=== PATIENT | female | born 1970 | race Caucasian/White ===

== ENCOUNTER 2016-05-03 08:51 | Observation (INO) ==
[2016-05-03] MEDS ORDERED: Aspirin 81 MG TAB.CHEW PO ONE (09:05)
[2016-05-03] MEDS: Nitroglycerin 0.4 MG TAB.SUBL SL ONE ×3 (09:52→10:12)
--- NOTE | 2016-05-03 09:56 | Emergency Department Note ---
Disposition Clinical Impression: Chest pain Qualifiers: Chest pain type: unspecified Qualified Code(s): R07.9 - Chest pain, unspecified Disposition: Admitted As Inpatient Condition: Fair Time of Disposition: 13:04 Chest Pain HPI - General Chief Complaint: ED Chest Pain Stated Complaint: CP Time Seen by Provider: 05/03/16 08:51 Source: patient Limitations: no limitations Vital Signs Reviewed: Yes Nursing Notes Reviewed: Yes - History of Present Illness HPI Narrative: 45-year-old female history of CAD, HLD,obesity, Fam HX, chest pain sharp stabbing pain of 10 chest pain, this started at 7:30 this morning she came to the ER she did take one nitroglycerin, did not have any relief. Patient is a history of hypertension, obesity, family history of NE at a young age. Pt complaint: chest pain Onset (ago): hour(s) (7:30 am) Onset: during exertion Pain Location: substernal Severity: moderate Severity scale (1-10): 9 Quality: aching, sharp Improves with: nitroglycerin (no improvement after nitro x 1) Worsens with: nothing Associated symptoms: Reports: nausea, dyspnea. Denies: vomiting, diaphoresis, palpitations Treatments prior to arrival chest pain: aspirin, nitroglycerin - Related Data Home Medications Medication Instructions Recorded Confirmed Amoxicillin/Clavulanate [Augmentin] 875 mg PO BIDWM 05/03/16 05/03/16 Brompheniramine/Pseudoephed/Dm 10 ml PO TID PRN 05/03/16 05/03/16 [Bromfed Dm Cough Syrup] FLUoxetine HCl [PROzac] 20 mg PO QAM 05/03/16 05/03/16 Simvastatin [Zocor] 40 mg PO QAM 05/03/16 05/03/16 Tizanidine HCl [Zanaflex] 4 mg PO TID PRN 05/03/16 05/03/16 Allergies Allergy/AdvReac Type Severity Reaction Status Date / Time codeine Allergy Unresponsiv Verified 07/03/15 11:29 e gabapentin AdvReac Vomiting Verified 05/03/16 11:10 sucralfate [From Carafate] AdvReac Vomiting Verified 05/03/16 11:10 All systems ED: reviewed and negative except as stated. Constitutional: Denies: fever, chills Cardiovascular: Reports: as per HPI, chest pain, dyspnea on exertion Respiratory: Denies: cough, dyspnea, wheezes Gastrointestinal: Denies: abdominal pain, nausea, vomiting Genitourinary: Denies: urgency, dysuria Musculoskeletal: Denies: back pain Psychiatric: Denies: anxiety Chest Pain PMH - Past Medical History Medical history: Reports: hyperlipidemia - Social History Smoking Status: Never smoker Alcohol use: Reports: unknown Drug use: Reports: none Physical Exam Constitutional: Vital signs stable, patient appears moderately uncomfortable. Neck: normal inspection, neck is supple, trachea midline Resp: normal chest inspection, CTA bilaterally, no resp distress CV: RRR, no m/g/r GI: normal inspection, Soft, NTND, BS present Back: normal inspection, no tenderness to palpation Neuro: A&O3, no gross motor or sensory deficits bilaterally Psych: normal mood, normal affect Skin: No rashes, skin warm, dry, intact - General Limitations: no limitations General appearance: alert, in no apparent distress Course Course Narrative: 45-year-old female with chest pain at rest, not half prior to arrival, moderately suspicious story with risk factors, known CAD. [place] pain workup. Likely admission for chest pain rule out - Reevaluation(s) Reevaluation #1: Patient's pain did not improve after first dose of nitroglycerin and the pain went down to 4 out of 10 and she stated she did not need any more nitroglycerin. so we ordered a second EKG, Negative Trop, EKG no changes, patient medicine service for chest pain workup. Time: 13:03 Vital Signs Temperature 97.6 F 05/03/16 08:56 Pulse Rate 73 05/03/16 08:56 Respiratory Rate 20 05/03/16 08:56 Blood Pressure 136/95 05/03/16 08:56 O2 Sat by Pulse Oximetry 100 05/03/16 08:56 Temperature 97.8 F 05/03/16 13:12 Pulse Rate 66 05/03/16 13:12 Respiratory Rate 19 05/03/16 13:12 Blood Pressure 125/84 05/03/16 13:12 O2 Sat by Pulse Oximetry 97 05/03/16 13:12 Oxygen Delivery Oxygen Delivery Room Air Chest Pain - [facility] Narrative Medical decision making narrative: ADmitted for chest pain rule out repeat EKG negative for changes, hospitalist ameda accepting. - Differential Diagnosis Likely: fracture of rib, atypical chest pain, chest pain - Medical Records Medical records reviewed: Yes I reviewed the patient's medical records. - Lab Data Lab results reviewed: Yes I reviewed the patient's lab results. Result diagrams: 05/03/16 09:17 05/03/16 09:17 Lab Results 05/03/16 05/03/16 05/03/16 Range/Units 09:17 09:17 09:17 WBC 7.3 (4.3-11.1) K/mcL RBC 4.66 (3.82-4.97) M/mcL Hgb 12.6 (11.5-15.4) g/dL Hct 39.3 (35.3-44.9) % MCV 84.3 (83.0-100.0) fL MCH 27.0 L (28.0-33.3) pg MCHC 32.1 (31.6-35.5) g/dL RDW 14.6 H (11.5-14.5) % Plt Count 300 (140-400) K/mcL MPV 9.7 (9.4-12.4) fL Immature Gran % 0.3 (0-4) % Seg Neutrophils % 57.4 % Lymphocytes % 31.2 % Monocytes % 6.7 % Eosinophils % 3.6 % Basophils % 0.8 % Neutrophils # 4.2 (1.6-8.9) K/mcL Lymphocytes # 2.3 (0.6-4.6) K/mcL Monocytes # 0.5 (0.0-1.3) K/mcL Eosinophils # 0.3 (0.0-0.6) K/mcL Basophils # 0.1 (0.0-0.2) K/mcL PT 10.6 (9.4-12.1) Seconds INR 1.0 APTT 28.8 (26.0-36.0) Seconds Sodium 140 (136-145) mEq/L Potassium 3.7 (3.5-4.5) mEq/L Chloride 105 (98-109) mEq/L Carbon Dioxide 25 (19-29) mEq/L BUN 16 (7-20) mg/dL Creatinine 0.79 (0.57-1.11) mg/dL Est GFR ( Amer) > 60 (> 60) Est GFR (Non-Af Amer) > 60 (> 60) BUN/Creatinine Ratio 20 (6-26) Glucose 95 (70-99) mg/dL Calculated Osmolality 291 (280-300) Calcium 8.8 (8.6-10.8) mg/dL Troponin I (0-0.03) ng/mL 05/03/16 Range/Units 09:17 WBC (4.3-11.1) K/mcL RBC (3.82-4.97) M/mcL Hgb (11.5-15.4) g/dL Hct (35.3-44.9) % MCV (83.0-100.0) fL MCH (28.0-33.3) pg MCHC (31.6-35.5) g/dL RDW (11.5-14.5) % Plt Count (140-400) K/mcL MPV (9.4-12.4) fL Immature Gran % (0-4) % Seg Neutrophils % % Lymphocytes % % Monocytes % % Eosinophils % % Basophils % % Neutrophils # (1.6-8.9) K/mcL Lymphocytes # (0.6-4.6) K/mcL Monocytes # (0.0-1.3) K/mcL Eosinophils # (0.0-0.6) K/mcL Basophils # (0.0-0.2) K/mcL PT (9.4-12.1) Seconds INR APTT (26.0-36.0) Seconds Sodium (136-145) mEq/L Potassium (3.5-4.5) mEq/L Chloride (98-109) mEq/L Carbon Dioxide (19-29) mEq/L BUN (7-20) mg/dL Creatinine (0.57-1.11) mg/dL Est GFR ( Amer) (> 60) Est GFR (Non-Af Amer) (> 60) BUN/Creatinine Ratio (6-26) Glucose (70-99) mg/dL Calculated Osmolality (280-300) Calcium (8.6-10.8) mg/dL Troponin I 0.00 (0-0.03) ng/mL - Radiology Data Radiology results reviewed: Yes I reviewed the patient's radiology results. Chest X-Ray 05/03/16 09:06 IMPRESSION: No acute cardiopulmonary disease. D/ / Serina Black MD / Serina Black MD Interpreting Provider: Serina Black MD - EKG Data EKG attestation: Yes I reviewed and interpreted this EKG. EKG shows normal: sinus rhythm Rate: normal (69bpm MO 132 QRS [address] segment elevations or depressions, normal axis,) Rhythm: NSR [place]/QRS: normal Interpretation: unchanged when compared to prior tracing (date) (2014), other ( Repeat EKG performed at 10:08 similar appearance to previous EKG, no evidence of ST segment elevations or depressions, normal QRS QT and MO intervals) - Core Measures AMI Core Measures Followed: Yes Heart Score - Score History: Moderately Suspicious EKG: Normal Age: 45-65 Risk Factors: Equal/Greater than 3 risk factor or history of atherosclerotic disease Troponin: Less than normal limit HEART Score Total: 4 Attestation Statement - Attestation Attestation: I examined this patient and my medical decision-making was reviewed with the Resident Physician. I agree with the documented findings, disposition and treatment plan as described except to the extent set forth below. CP free at the time of my eval. Diagnostics reviewed, discussed in detail w Dr. Hendricks.
[2016-05-03] MEDS ORDERED: *HR* HYDROmorphone (PF) 1 MG/ML SYRINGE IVP ONE (10:05)
[2016-05-03 10:14] LABS: Basophils # 0.1 K/mcL (0.0-0.2); Basophils % 0.8 %; Eosinophils # 0.3 K/mcL (0.0-0.6); Eosinophils % 3.6 %; Hematocrit 39.3 % (35.3-44.9); Hemoglobin 12.6 g/dL (11.5-15.4); Immature Granulocytes % 0.3 % (0-4); Lymphocytes # 2.3 K/mcL (0.6-4.6); Lymphocytes % 31.2 %; Mean Corpuscular HGB Conc 32.1 g/dL (31.6-35.5); Mean Corpuscular Volume 84.3 fL (83.0-100.0); Mean Platelet Volume 9.7 fL (9.4-12.4); Monocytes # 0.5 K/mcL (0.0-1.3); Monocytes % 6.7 %; Neutrophils # 4.2 K/mcL (1.6-8.9); Platelet Count 300 K/mcL (140-400); Red Blood Count 4.66 M/mcL (3.82-4.97); Red Cell Distribution Width 14.6 % (11.5-14.5); Segmented Neutrophils % 57.4 %
[2016-05-03 10:15] LABS: Prothrombin Time 10.6 Seconds (9.4-12.1)
[2016-05-03 10:17] LABS: Activated Partial Thrombo Time 28.8 Seconds (26.0-36.0)
[2016-05-03 10:25] LABS: BUN/Creatinine Ratio 20 (6-26); Blood Urea Nitrogen 16 mg/dL (7-20); Calcium 8.8 mg/dL (8.6-10.8); Carbon Dioxide 25 mEq/L (19-29); Chloride 105 mEq/L (98-109); Glucose 95 mg/dL (70-99); Osmolality,Calculated 291 (280-300); Potassium 3.7 mEq/L (3.5-4.5); Sodium 140 mEq/L (136-145); eGFR For African Americans > 60 (> 60); eGFR For Non-African Americans > 60 (> 60)
--- NOTE | 2016-05-03 11:19 | Internal Med History&Physical ---
Date of Encounter: 05/03/16 Time of Encounter: 13:20 Assessment and Plan (1) Chest pain Current visit: Yes Status: Acute Observation. Chest pain at risk for ACS. Telemetry. Trend troponins. If troponins negative, will plan for stress test in morning. Check A1c and lipid profile. Qualifiers: Chest pain type: precordial pain Qualified Code(s): R07.2 - Precordial pain (2) Hyperlipidemia Current visit: Yes Status: Acute Continue simvastatin Qualifiers: Hyperlipidemia type: mixed hyperlipidemia Qualified Code(s): E78.2 - Mixed hyperlipidemia Internal Medicine - H&P: HPI Chief complaint: Chest pain Admitted From: Emergency Dept Plans for Post Hospital Care: Home History of present illness: Ms. Freedman is a 45 year old female patient with a history of hyperlipidemia and previous nonobstructive coronary artery disease who presented to the ER with complaints of chest pain. She began to have chest pain at around 7:30 this morning. Pain is described as sharp on the left side of her chest. It was 9 out of 10 in severity. Pain has improved now to 4 out of 10 but is still present. No relation to activity. She has been recovering from an episode of bronchitis and is currently on Augmentin. Denies any significant shortness of breath, orthopnea or PND. No pedal edema or palpitations. She had presented to the ER a few years back with similar complaints and at that time she underwent a carotid catheterization which showed Left ventricular ejection fraction 60%; 10% discrete stenosis in the distal left main coronary artery; 20% discrete stenosis in the proximal left anterior descending artery; 20% discrete stenosis in the proximal left circumflex artery. She has not had any chest pain in between since then Past Med Surg Social Fam HX - Past Medical History Attestation: Yes The following information was validated with the patient. Medical history: coronary artery disease (nonobstructive), hyperlipidemia - Social History Smoking Status: Never smoker Smokeless Tobacco Status: No Alcohol use: unknown Drug use: none - Family History Mother Hx Family Cardiac Disorders: Yes (mother of a heart attack at the age of 49 ) Father Hx Family Cardiac Disorders: Yes (hypertension) Internal Medicine - H&P: Meds Amoxicillin/Clavulanate [Augmentin] 875 mg PO BIDWM 05/03/16 [History] Brompheniramine/Pseudoephed/Dm [Bromfed Dm Cough Syrup] 10 ml PO TID PRN [History] FLUoxetine HCl [PROzac] 20 mg PO QAM 05/03/16 [History] Simvastatin [Zocor] 40 mg PO QAM 05/03/16 [History] Tizanidine HCl [Zanaflex] 4 mg PO TID PRN 05/03/16 [History] Allergies codeine Allergy (Verified 07/03/15 11:29) Unresponsive gabapentin Adverse Reaction (Verified 05/03/16 11:10) Vomiting sucralfate [From Carafate] Adverse Reaction (Verified 05/03/16 11:10) Vomiting All Systems PM: A 10-system review of systems was performed and is negative for pertinent findings except as documented above in the HPI. - Constitutional Constitutional: no chills, no fever(s), no night sweats - EENT Eyes: no change in vision, no discharge, no pain, no photophobia Nose, mouth and throat: no dysphagia, no nasal discharge, no neck pain, no sore throat - Cardiovascular Cardiovascular ROS IM: chest pain, no diaphoresis, no dyspnea, no lightheadedness, no palpitations, no syncope - Respiratory Respiratory: no cough, no dyspnea, no wheezing, no excessive phlegm production - Gastrointestinal Gastrointestinal: no abdominal pain, no diarrhea, no hematemesis, no hematochezia, no melena, no nausea, no vomiting - Genitourinary Genitourinary: no change in urinary stream, no dysuria, no flank pain, no hematuria - Musculoskeletal Musculoskeletal ROS IM: no numbness, no tingling - Integumentary Integumentary IM: no rash, no unusual bruising - Neurological Neurological ROS: no confusion, no convulsions, no focal weakness, no numbness, no tingling, no tremor(s) - Hematologic/Lymphatic Hematologic/Lymphatic: no easy bruising - Constitutional Vitals: Temp Pulse Resp BP Pulse Ox 97.6 F 68 16 109/69 99 05/03/16 09:15 05/03/16 10:17 05/03/16 10:17 05/03/16 10:17 05/03/16 10:17 General appearance: Present: cooperative, A&O X 3, no acute distress, answers questions appropriately - Eye Eye exam: Present: EOMI, PERRL, conjuntiva pink, sclera anicteric - Neck Neck exam general surgery: Present: supple, trachea midline. Absent: lymphadenopathy - Respiratory Respiratory exam: Present: CTAB. Absent: accessory muscle use, rales, rhonchi, wheezes - Cardiovascular Cardiovascular exam: Present: RRR, +S1, +S2. Absent: diastolic murmur, gallop, rubs, systolic murmur - GI/Abdominal GI/Abdominal exam: Present: normal bowel sounds, soft, no peritoneal signs. Absent: distended, tenderness - Extremities Exam Extremities exam: Present: warm, radial pulses palpable and symetrical. Absent : calf tenderness, cyanotic, pedal edema - Neurological Exam Neurological exam: Present: alert, CN II-XII intact, oriented X3, no focal deficits. Absent: facial droop, speech deficit - Skin Skin exam: Present: dry, intact Internal Med - H&P Results - Labs CBC & Chem 7: 05/03/16 09:17 05/03/16 09:17 Labs: Short CBC 05/03/16 Range/Units 09:17 WBC 7.3 (4.3-11.1) K/mcL Hgb 12.6 (11.5-15.4) g/dL Hct 39.3 (35.3-44.9) % Plt Count 300 (140-400) K/mcL Neutrophils # 4.2 (1.6-8.9) K/mcL BMP 05/03/16 09:17 Sodium 140 Potassium 3.7 Chloride 105 Carbon Dioxide 25 BUN 16 Creatinine 0.79 Glucose 95 Calcium 8.8 Cardiac Enzymes 05/03/16 Range/Units 09:17 Troponin I 0.00 (0-0.03) ng/mL - EKG Data -: EKG Interpreted by Myself EKG shows normal: sinus rhythm Rate: normal - EKG Data Interpretation IM: normal EKG - Impressions ITS Impressions Chest X-Ray 05/03/16 09:06 IMPRESSION: No acute cardiopulmonary disease. D/ / Serina Black MD / Serina Black MD Interpreting Provider: Serina Black MD - Attending Attestation This document has been at least partially created by [employer] Therapeutic recognition technology by Dr. Garvey. Errors in grammar, wording or other phrases may exist. If errors are found after the documentation is signed, they will be addressed individually in the addendum section of this document when appropriate.
[2016-05-03] MEDS ORDERED: tiZANidine 4 MG TABLET PO PRN (12:13)
[2016-05-04 06:07] LABS: Basophils # 0.1 K/mcL (0.0-0.2); Eosinophils # 0.2 K/mcL (0.0-0.6); Eosinophils % 3.8 %; Hematocrit 38.8 % (35.3-44.9); Immature Granulocytes % 0.4 % (0-4); Lymphocytes # 1.8 K/mcL (0.6-4.6); Lymphocytes % 34.9 %; Mean Corpuscular HGB Conc 30.9 g/dL (31.6-35.5); Mean Corpuscular Hemoglobin 26.2 pg (28.0-33.3); Mean Corpuscular Volume 84.7 fL (83.0-100.0); Mean Platelet Volume 9.1 fL (9.4-12.4); Monocytes # 0.4 K/mcL (0.0-1.3); Monocytes % 8.1 %; Neutrophils # 2.7 K/mcL (1.6-8.9); Platelet Count 250 K/mcL (140-400); Red Blood Count 4.58 M/mcL (3.82-4.97); Red Cell Distribution Width 14.5 % (11.5-14.5); Segmented Neutrophils % 51.8 %
[2016-05-04 06:19] LABS: Hemoglobin A1C 5.6 %
[2016-05-04] MEDS ORDERED: Regadenoson 0.4 MG/5 ML SYRINGE IVP ONE (06:28)
[2016-05-04 06:33] LABS: BUN/Creatinine Ratio 19 (6-26); Blood Urea Nitrogen 15 mg/dL (7-20); Calcium 7.9 mg/dL (8.6-10.8); Carbon Dioxide 23 mEq/L (19-29); Chloride 109 mEq/L (98-109); Chol/HDL Ratio 4.5 (0-4.9); Cholesterol 126 mg/dL (< 200); Glucose 104 mg/dL (70-99); HDL Cholesterol 28 mg/dL (40-59); LDL Cholesterol,Calculated 71 mg/dL (0-99); Osmolality,Calculated 289 (280-300); Potassium 4.3 mEq/L (3.5-4.5); Sodium 139 mEq/L (136-145); Triglycerides 136 mg/dL (< 150); eGFR For African Americans > 60 (> 60); eGFR For Non-African Americans > 60 (> 60)
[2016-05-04] MEDS ORDERED: FLUoxetine 20 MG CAPSULE PO SCH (09:00)
[2016-05-04] MEDS ORDERED: Aspirin Enteric Coated 81 MG Tablet PO SCH (09:00)
--- NOTE | 2016-05-04 11:17 | Nuclear Medicine Stress Report ---
Low Level Regadenoson Name: Nicolasa Freedman Date of Study: 05/04/2016 Date: 1970 Ht: 63.0 in Medical Record#: [id number] Age: 45 Wt: 200.0 lb Gender: Female Order #: [id number] Location: [facility] Room: [facility] Supervising Provider: Kitty Andrade CNP Reading Physician: Olga Lidia Jarquin DO Ordering Physician: Debbie Cruz CNP Primary Care Physician: Terri Hernandez MD Stress Technologist: Leola Thompson RRT,CPFT Operations Research Manager: Osvaldo Canales Indications: Chest Pain Impression: Perfusion imaging was negative for ischemia or infarct. Low level exercise ECG was negative for ischemia. Gated EF = >70%. History: Hypercholesteremia Stress Test Summary: Stress Test Type: Low level pharmacologic Regadenoson 0.4mg/5ml given IV Baseline Information: Initial Heart Rate: 95 Blood Pressure: 120/80 Stress Information: Stress Time: 4 min 00 sec Test Terminated Due to (primary): As per protocol Maximum Blood Pressure: 124/60 Maximum Heart Rate: 130 Percent Maximum Heart Rate Achieved: 74 Double Product: 76057 METS Reached: 2.3 Symptoms: No chest symptoms Nuclear Summary: SPECT myocardial perfusion imaging using Tc99m Sestamibi given intravenously was performed at rest and following cardiac stress testing. The resting images were obtained following initial dose of 11.2 mCi. Following stress an additional dose of 34.8 mCi was given at peak exercise or 30 seconds post regadenoson infusion. Medication Given: Time Medication Dose Units Route Findings: Stress Note * Resting ECG demonstrated normal sinus rhythm. * Low level exercise/ pharmacologic stress ECG is negative for ischemia at level of heart rate achieved. * Patient had no chest pain during stress. * No arrhythmias were noted during stress. Hemodynamic responses * Normal hemodynamic responses to low level exercise plus pharmacologic stress. Study Quality * Study quality is good. Gated EF > 70% * Gated EF > 70%. Left Ventricle * The left ventricle is not dilated. TID * No evidence of transient ischemic dilatation. Lung Uptake * There is no evidence of increase lung uptake. NORMALS * Normal wall motion. * Normal segmental perfusion in stress. * Normal Segmental Perfusion in rest. Updated by Olga Lidia Jarquin on 05/04/2016 11:11:15 AM electronically signed on 05/04/2016 11:12:12 AM with status of Final
--- NOTE | 2016-05-04 12:08 | Electrocardiograph Report ---
[place] [facility] [employer] [facility] [employer] [facility] Test Date: 2016-05-03 Pat Name: Nicolasa Freedman Department: 103 Room: 3B32 Gender: F Girl Friday: : 1970 Requested By: Andres Hendricks Order Number: [id number] Daljit MD: Jeremy Nogueira MD Measurements Intervals [place] Rate: 69 P: 47 LA: 132 QRS: 19 QRSD: 88 T: 38 QT: 414 QTc: 433 Interpretive Statements SINUS RHYTHM Electronically Signed On 05-04-2016 12:06:51 EDT by Jeremy Nogueira MD
--- NOTE | 2016-05-04 14:24 | Electrocardiograph Report ---
[address] [place], [place] [address] Test Date: 2016-05-04 Pat Name: Nicolasa Freedman Department: 113 Room: 3B32 Gender: F Highway Engineering Technician: : 1970 Requested By: Mary Garvey Order Number: [id number] Reading MD: Tyler Elizabeht MD Measurements Intervals [place] Rate: 81 P: 51 ME: 133 QRS: 26 QRSD: 94 T: 44 QT: 402 QTc: 440 Interpretive Statements SINUS RHYTHM LOW QRS VOLTAGE IN PRECORDIAL LEADS Electronically Signed On 05-04-2016 14:22:32 EDT by Tyler Elizabeth MD
[2016-05-04 14:37] VITALS: BP 114/72
--- NOTE | 2016-05-04 17:33 | Discharge Summary ---
Date of Encounter: 05/04/16 Time of Encounter: 16:00 - Discharge Diagnosis (1) Chest pain Priority: Primary Status: Acute Comments: Pt reports sudden onset L chest pain with exertion that lasted 2 hours yesterday. Onset at work while she was lifting a heavy object at her new job. Pain was sharp and constant and she had nausea and diaphoresis. Pt does not smoke. Stress test today negative for ischemia or infarct. Exercise ECG negative for ischemia and gated EF was 70%. Pt denies pain or associated symptoms at this time and states that she is ready to go home. Qualifiers: Chest pain type: unspecified Qualified Code(s): R07.9 - Chest pain, unspecified (2) Hyperlipidemia Priority: Primary Status: Acute Comments: Lipid panel wnl, HDL low at 28. Continue statin and follow up with PCP. Qualifiers: Hyperlipidemia type: mixed hyperlipidemia Qualified Code(s): E78.2 - Mixed hyperlipidemia - Discharge Medications Home Medications: Amoxicillin/Clavulanate [Augmentin] 875 mg PO BIDWM 05/03/16 [History] Brompheniramine/Pseudoephed/Dm [Bromfed Dm Cough Syrup] 10 ml PO TID PRN [History] FLUoxetine HCl [Prozac] 20 mg PO QAM 05/03/16 [History] Simvastatin [Zocor] 40 mg PO QAM 05/03/16 [History] Tizanidine HCl [Zanaflex] 4 mg PO TID PRN 05/03/16 [History] Aspirin Enteric Coated [Aspirin EC] 81 mg PO DAILY tablet. 05/04/16 [Rx] Allergies/Adverse Reactions: Allergies codeine Allergy (Verified 07/03/15 11:29) Unresponsive gabapentin Adverse Reaction (Verified 05/03/16 11:10) Vomiting sucralfate [From Carafate] Adverse Reaction (Verified 05/03/16 11:10) Vomiting Procedures/tests Complete & Pending: Procedures Performed prior 72 hours Category Date Time Status NM carol perf SPECT multi [NM] Routine Exams 05/03/16 05:43 Taken ECG 12 lead ECG [ECG] Routine Y 05/04/16 07:00 Completed SP pharm nuclear stress Routine Y 05/04/16 07:30 Completed Date of admission: 05/03/16 11:55 Primary care physician: Terri Hernandez MD Discharging clinician: Debbie Cruz Anticipated date of discharge: 05/04/16 - Patient Status Disposition: Home, Self-Care Condition: Good Functional capacity at discharge: independent ambulation Overall status at discharge: patient is back to baseline - Discharge Instructions Follow Up With: Terri Hernandez MD [Primary Care Provider] - Additional Instructions: Please follow up with your family doctor within the next week for a follow up visit. Please continue to take your normal home medications. Return to closest ER if you have any other problems or concerns or if chest pain returns. - Diet and Activity Activity: resume usual activities as tolerated Diet: advance to your usual diet Hospital course: Ms. Freedman is a 45 year old female with history of hyperlipidemia, who presented to the ED yesterday a.m with 2 hour history of L sharp, constant chest pain without radiation. Pt states that she did have nausea and diaphoresis , but denies sob or emesis. Pt states that pain lasted until she got into the ER. EKG NSR. STress test negative for ischemia. Pt denies pain since yesterday. Troponins were negative, no leukocytosis. Pt does not smoke and has no cardiac history. - Time Spent with Patient Total time spent providing and/or coordinating discharge services: Less than 30 minutes - Constitutional Vitals: Temp Pulse Resp BP Pulse Ox 97.9 F 77 16 114/72 96 05/04/16 14:36 05/04/16 14:36 05/04/16 14:36 05/04/16 14:36 05/04/16 14:36 General appearance: Present: cooperative, A&O X 3, pleasant, no acute distress, answers questions appropriately - Head Head exam: Present: atraumatic, normal inspection - Eye Eye exam: Present: normal appearance, conjuntiva pink - ENT ENT exam: Present: mucous membranes moist, normal exam - Neck Neck exam general surgery: Present: normal inspection. Absent: lymphadenopathy , tenderness - Respiratory Respiratory exam: Present: CTAB. Absent: chest wall tenderness, decreased breath sounds, rales, respiratory distress, rhonchi, stridor, wheezes, tachypnea - Cardiovascular Cardiovascular exam: Present: RRR, +S1, +S2. Absent: diastolic murmur, systolic murmur, tachycardia - GI/Abdominal GI/Abdominal exam: Present: normal bowel sounds, soft. Absent: hepatomegaly, tenderness - Extremities Exam Extremities exam: Present: full ROM, normal capillary refill, normal inspection , warm, radial pulses palpable and symetrical. Absent: joint swelling, pedal edema, tenderness - Neurological Exam Neurological exam: Present: alert, oriented X3, no focal deficits, strengths equal and symetr throughout
== END 2016-05-04 18:36 | disposition home or self-care (01) ==
LOC: 3BNU 08:51 → EMEROO 08:51 → 3BNU 12:50
PROVIDERS: ADMIT Internal Medicine; ATTEND Registered Nurse

== ENCOUNTER 2018-11-02 15:29 | Observation (INO) ==
[2018-11-02] MEDS ORDERED: Isovue-370 500 ML BOTTLE IVP ONE (16:52)
[2018-11-02] MEDS ORDERED: *HR* FentaNYL (PF) 100 MCG/2 ML VIAL IVP ONE ×2 (16:52→19:21)
--- NOTE | 2018-11-02 16:56 | Emergency Department Note ---
Disposition Clinical Impression: Perirectal abscess, Acute UTI Disposition: Admitted As Inpatient Condition: Fair Time of Disposition: 19:43 Abdominal Pain HPI - General Chief Complaint: ED Abdominal Pain Stated Complaint: constipated Time Seen by Provider: 11/02/18 15:41 Source: patient Nursing Notes Reviewed: Yes Vital Signs Reviewed: Yes - History of Present Illness HPI Narrative: This is a 48-year-old female presents today with a complaint of constipation for the 5 days. Patient states that her last bowel movement was Sunday or Sunday. She states that she has had trouble going to the bathroom ever since then. She also describes some trouble urinating. Patient describes suprapubic and lower abdominal pain. She denies any nausea or vomiting. She denies any chronic opiate use. Denies any trauma. She describes symptoms as moderate. She also complains of some rectal pain when she attempts to defecate. Pt Subjective Complaint: abdominal pain Location: suprapubic Pain Scale: 10 Quality: cramping Migration to: no migration - Related Data Home Medications Medication Instructions Recorded Confirmed Simvastatin [Zocor] 40 mg PO QAM 05/03/16 11/02/18 raNITIdine HCl [Ranitidine HCl] 300 mg PO DAILY 11/28/16 11/02/18 FLUoxetine HCl [Fluoxetine HCl] 10 mg PO QAM 07/18/18 11/02/18 FLUoxetine HCl [Fluoxetine HCl] 40 mg PO QAM 07/18/18 11/02/18 Tizanidine HCl 4 mg PO DAILY PRN 07/18/18 11/02/18 Aspirin [Lo-Dose Aspirin EC] 81 mg PO DAILY 11/02/18 11/02/18 Allergies Allergy/AdvReac Type Severity Reaction Status Date / Time codeine AdvReac Drowsy Verified 11/02/18 20:26 sucralfate [From Carafate] AdvReac Vomiting Verified 11/02/18 20:26 All systems ED: reviewed and negative except as stated. Constitutional: Denies: fever, weakness Cardiovascular: Denies: chest pain, palpitations Gastrointestinal: Reports: abdominal pain, constipation. Denies: nausea, vomiting, diarrhea, hematemesis, melena, hematochezia Abdominal Pain PMH - Past Medical History Medical history: Reports: non-contributory, hyperlipidemia, hypertension, other Psychiatric history: Reports: anxiety, depression - Social History Smoking status: Never smoker Alcohol use: Reports: none Drug use: Reports: none Physical Exam - General Limitations: no limitations General appearance: alert, in no apparent distress - Head Head exam: atraumatic, normocephalic, normal inspection - Eye Eye exam: Present: normal appearance, PERRL, EOMI - Expanded Eye Exam Pupils: Left: reactive - ENT ENT exam: normal exam, normal oropharynx, mucous membranes moist - Expanded ENT Exam External ear exam: Present: normal external inspection Mouth exam: Present: normal external inspection Teeth exam: Present: normal inspection Throat exam: Present: normal inspection - Neck Neck exam: Present: normal inspection, full ROM, trachea midline - Chest Chest inspection: Present: normal inspection, symmetric chest wall rise - Respiratory Respiratory exam: Present: normal lung sounds bilaterally - Cardiovascular Cardiovascular exam: Present: regular rate, normal rhythm, normal heart sounds - Abdominal Exam Abdominal exam: Present: soft, tenderness. Absent: distention, guarding, rebound, rigidity Abdominal tenderness: Present: LLQ, moderate - Rectal Exam Surgical Oncologist present during exam: Yes Rectal exam: Present: normal rectal tone, other (There is a swollen mass-like structure on exam concerning for abscess. It is slightly fluctuant. It is tender. No bleeding. There is no impaction. There is, however, some loose stool. NO melena or hematochezia). Absent: fecal impaction - Extremities Exam Extremities exam: Present: normal inspection, full ROM. Absent: tenderness, pedal edema - Expanded Upper Extremity Exam Shoulder exam: Present: normal inspection, full ROM Arm exam: Present: normal inspection, full ROM Elbow exam: Present: normal inspection, full ROM Forearm/Wrist exam: Present: normal inspection, full ROM Hand exam: Present: normal inspection, full ROM Vascular exam: Normal: capillary refill, radial pulse - Expanded Lower Extremity Exam Hip/Pelvis exam: Present: normal inspection, full ROM Upper leg exam: Present: normal inspection, full ROM Knee exam: Present: normal inspection, full ROM Lower leg exam: Present: normal inspection, full ROM Ankle exam: Present: normal inspection, full ROM Foot/toe exam: Present: normal inspection, full ROM Neurovascular/Tendon exam: Absent: motor deficit, sensory deficit, tendon deficit - Back Exam Back exam: Present: normal inspection, full ROM. Absent: tenderness - Neurological Exam Neurological exam: Present: alert, oriented X3 - Expanded Neurological Exam Patient oriented to: Present: person, place, time Coma Scale Eye Opening: Spontaneous Coma Scale Motor Response: Obeys Commands Coma Scale Verbal Response: Oriented Coma Scale Total: 15 - Psychiatric Psychiatric exam: Present: normal affect, normal mood - Skin Skin exam: Present: warm, dry, intact, normal color Course Vital Signs Temperature 98.1 F 11/02/18 15:30 Pulse Rate 100 11/02/18 15:30 Respiratory Rate 21 11/02/18 15:30 Blood Pressure 123/82 11/02/18 15:30 O2 Sat by Pulse Oximetry 99 11/02/18 15:30 Temperature 98.4 F 11/02/18 20:47 Pulse Rate 83 11/02/18 20:47 Respiratory Rate 16 11/02/18 20:47 Blood Pressure 141/79 11/02/18 20:47 O2 Sat by Pulse Oximetry 99 11/02/18 20:47 Oxygen Delivery Oxygen Delivery Room Air Abdominal Pain - MDM Narrative Medical decision making narrative: Differential diagnoses includes constipation versus bowel obstruction versus a rectal abscess versus diverticulitis. We will get plain cream to see this any overt large stool burden. 1700 Abdominal series unremarkable. Given this finding, significant tenderness on exam, and concern for possible perirectal abscess, I would have to rule out other intra-abdominal process to explain this patient's symptoms. I will get a CT scan and check basic labs at this time. 1920 Pt re-evaluated. Still has some pain. Labs and CT reviewed. Ct findings are consistent with perirectal abscess. Will admit 193 Patient's care discussed with Dr. Whittington. Will admit. - Medical Records Medical records reviewed: Yes I reviewed the patient's medical records. - Lab Data Lab results reviewed: Yes I reviewed the patient's lab results. Result diagrams: 11/02/18 17:30 11/02/18 17:30 Lab Results 11/02/18 11/02/18 11/02/18 Range/Units 17:30 17:30 18:47 WBC 18.6 H (4.3-11.1) K/mcL RBC 4.83 (3.82-4.97) M/mcL Hgb 14.2 (11.5-15.4) g/dL Hct 43.2 (35.3-44.9) % MCV 89.4 (83.0-100.0) fL MCH 29.4 (28.0-33.3) pg MCHC 32.9 (31.6-35.5) g/dL RDW 12.7 (11.5-14.5) % Plt Count 265 (140-400) K/mcL MPV 8.9 L (9.4-12.4) fL Immature Gran % 0.6 (0-4) % Seg Neutrophils % 85.7 % Lymphocytes % 7.2 % Monocytes % 6.2 % Eosinophils % 0.1 % Basophils % 0.2 % Neutrophils # 15.9 H (1.6-8.9) K/mcL Lymphocytes # 1.3 (0.6-4.6) K/mcL Monocytes # 1.2 (0.0-1.3) K/mcL Eosinophils # 0.0 (0.0-0.6) K/mcL Basophils # 0.0 (0.0-0.2) K/mcL Sodium 136 (136-145) mEq/L Potassium 3.3 L (3.5-5.1) mEq/L Chloride 101 (98-107) mEq/L Carbon Dioxide 25 (23-29) mEq/L BUN 12 (6-20) mg/dL Creatinine 0.78 (0.60-1.20) mg/dL Est GFR ( Amer) > 60 (> 60) Est GFR (Non-Af Amer) > 60 (> 60) BUN/Creatinine Ratio 15 (6-26) Glucose 115 H (70-105) mg/dL Calculated Osmolality 283 (280-300) Calcium 9.1 (8.6-10.3) mg/dL Urine Color Yellow (Yellow) Urine Clarity Clear (Clear) Urine pH 5.5 (5.0-8.0) pH Units Ur Specific [place] > 1.030 H (1.010-1.025) Urine Protein 30 H (Neg-Trace) mg/dL Urine Glucose (UA) Normal (Normal) mg/dL Urine Ketones 15 H (Negative) mg/dL Urine Blood Negative (Negative) Urine Nitrite Negative (Negative) Urine Bilirubin Negative (Negative) Urine Urobilinogen Normal (Normal) mg/dL Ur Leukocyte Esterase Small H (Negative) Urine Microscopic RBC 0-3 (0-3) per hpf Urine Microscopic WBC 50-100 H (0-3) per hpf Ur Squamous Epith Cells Many H (None-Few) per lpf Urine Bacteria Many H (None-Few) per hpf Ur Culture Indicated? YES A (NO) Urine Test (Negative) 11/02/18 Range/Units 18:47 WBC (4.3-11.1) K/mcL RBC (3.82-4.97) M/mcL Hgb (11.5-15.4) g/dL Hct (35.3-44.9) % MCV (83.0-100.0) fL MCH (28.0-33.3) pg MCHC (31.6-35.5) g/dL RDW (11.5-14.5) % Plt Count (140-400) K/mcL MPV (9.4-12.4) fL Immature Gran % (0-4) % Seg Neutrophils % % Lymphocytes % % Monocytes % % Eosinophils % % Basophils % % Neutrophils # (1.6-8.9) K/mcL Lymphocytes # (0.6-4.6) K/mcL Monocytes # (0.0-1.3) K/mcL Eosinophils # (0.0-0.6) K/mcL Basophils # (0.0-0.2) K/mcL Sodium (136-145) mEq/L Potassium (3.5-5.1) mEq/L Chloride (98-107) mEq/L Carbon Dioxide (23-29) mEq/L BUN (6-20) mg/dL Creatinine (0.60-1.20) mg/dL Est GFR ( Amer) (> 60) Est GFR (Non-Af Amer) (> 60) BUN/Creatinine Ratio (6-26) Glucose (70-105) mg/dL Calculated Osmolality (280-300) Calcium (8.6-10.3) mg/dL Urine Color (Yellow) Urine Clarity (Clear) Urine pH (5.0-8.0) pH Units Ur Specific [place] (1.010-1.025) Urine Protein (Neg-Trace) mg/dL Urine Glucose (UA) (Normal) mg/dL Urine Ketones (Negative) mg/dL Urine Blood (Negative) Urine Nitrite (Negative) Urine Bilirubin (Negative) Urine Urobilinogen (Normal) mg/dL Ur Leukocyte Esterase (Negative) Urine Microscopic RBC (0-3) per hpf Urine Microscopic WBC (0-3) per hpf Ur Squamous Epith Cells (None-Few) per lpf Urine Bacteria (None-Few) per hpf Ur Culture Indicated? (NO) Urine Test Negative (Negative) - Radiology Data Radiology results reviewed: Yes I reviewed the patient's radiology results.
[2018-11-02 17:42] LABS: Basophils % 0.2 %; Eosinophils % 0.1 %; Hematocrit 43.2 % (35.3-44.9); Hemoglobin 14.2 g/dL (11.5-15.4); Immature Granulocytes % 0.6 % (0-4); Lymphocytes # 1.3 K/mcL (0.6-4.6); Lymphocytes % 7.2 %; Mean Corpuscular HGB Conc 32.9 g/dL (31.6-35.5); Mean Corpuscular Hemoglobin 29.4 pg (28.0-33.3); Mean Corpuscular Volume 89.4 fL (83.0-100.0); Mean Platelet Volume 8.9 fL (9.4-12.4); Monocytes # 1.2 K/mcL (0.0-1.3); Monocytes % 6.2 %; Neutrophils # 15.9 K/mcL (1.6-8.9); Platelet Count 265 K/mcL (140-400); Red Blood Count 4.83 M/mcL (3.82-4.97); Red Cell Distribution Width 12.7 % (11.5-14.5); Segmented Neutrophils % 85.7 %; White Blood Count 18.6 K/mcL (4.3-11.1)
[2018-11-02 18:00] LABS: Blood Urea Nitrogen 12 mg/dL (6-20); Carbon Dioxide 25 mEq/L (23-29); Chloride 101 mEq/L (98-107); Potassium 3.3 mEq/L (3.5-5.1); Sodium 136 mEq/L (136-145)
[2018-11-02 18:01] LABS: BUN/Creatinine Ratio 15 (6-26); Calcium 9.1 mg/dL (8.6-10.3); Glucose 115 mg/dL (70-105); Osmolality,Calculated 283 (280-300); eGFR For African Americans > 60 (> 60); eGFR For Non-African Americans > 60 (> 60)
[2018-11-02 19:03] LABS: Bilirubin,Urine Negative (Negative); Blood,Urine Negative (Negative); Clarity,Urine Clear (Clear); Color,Urine Yellow (Yellow); Glucose,Urine (UA) Normal (Normal); Ketones,Urine 15 mg/dL (Negative); Leukocyte Esterase,Urine Small (Negative); Nitrite,Urine Negative (Negative); PH,Urine 5.5 pH Units (5.0-8.0); Protein,Urine 30 mg/dL (Neg-Trace); Specific Gravity,Urine > 1.030 (1.010-1.025); Urobilinogen,Urine Normal (Normal)
[2018-11-02 19:05] LABS: Bacteria,Urine Many per hpf (None-Few); Squamous Epithelial Cell,Urine Many per lpf (None-Few); WBC,Urine 50-100 per hpf (0-3)
[2018-11-02 19:15] LABS: RBC,Urine 0-3 per hpf (0-3)
[2018-11-02] MEDS ORDERED: Piperacillin/Tazobactam 3.375 GM in 0.9 % Sodium Chloride Mini Bag 100 ML IVPB ONE ×2 (19:35→22:06)
[2018-11-02] MEDS ORDERED: 0.9 % Sodium Chloride 1,000 ML IVC SCH (19:45)
--- NOTE | 2018-11-02 20:48 | Anesthesia Evaluation PreOp ---
Date of Encounter: 11/02/18 Time of Encounter: 20:45 - Past History Planned Operation: Incision Drainage Abscess Perineal Cardiac History: HTN, Hyperlipidemia Pulmonary History: LIDA Dx ACID OPERATOR History: Denies Any Significant HX Other Medical History: GERD, Other (Anxiety Depression) Anesthesia History: No Prior Anesthetic Complications : No Test: Negative Alcohol Use: none Drug use: none Medications and Allergies Simvastatin [Zocor] 40 mg PO QAM 05/03/16 [History] raNITIdine HCl [Ranitidine HCl] 300 mg PO DAILY 11/28/16 [History] FLUoxetine HCl [Fluoxetine HCl] 10 mg PO QAM 07/18/18 [History] FLUoxetine HCl [Fluoxetine HCl] 40 mg PO QAM 07/18/18 [History] Tizanidine HCl 4 mg PO DAILY PRN 07/18/18 [History] Aspirin [Lo-Dose Aspirin EC] 81 mg PO DAILY 11/02/18 [History] Allergy/AdvReac Type Severity Reaction Status Date / Time codeine AdvReac Drowsy Verified 11/02/18 20:26 sucralfate [From Carafate] AdvReac Vomiting Verified 11/02/18 20:26 - Meds/Allergy Pre-op Review Medications Reviewed: Yes Allergies Reviewed: Yes Beta Blockers on Current Med List: No Anesthesia Results - Labs 11/02/18 17:30 11/02/18 17:30 - Imaging EKG: report reviewed (SR) Anesthesia Exam O2 Sat Height 1.6 m Weight 86.183 kg O2 Sat by Pulse Oximetry 99 O2 Sat by Pulse Oximetry 98 O2 Sat by Pulse Oximetry 98 O2 Sat by Pulse Oximetry 99 Vital Signs Temp Pulse Resp BP Pulse Ox 98.1 F 100 21 123/82 99 11/02/18 15:30 11/02/18 15:30 11/02/18 15:30 11/02/18 15:30 11/02/18 15:30 Height: 5'3 Weight: 190 lbs NPO (# of Hours): MN Pain Scale: 0 - HEENT Pupil (Motor): Pupils equal, EOMI Mallampati: II Teeth: Normal Oral Opening: Less than or equal to 3 - ACID OPERATOR LOC: Oriented ACID OPERATOR Motor: Normal RUE, Normal LUE, Normal RLE, Normal LLE, Normal Face ACID OPERATOR Sensory: Normal: RUE, LUE, RLE, LLE, Face - Cardiac Rhythm: Regular Murmur: None JVD: No Carotid Bruit: No - Pulmonary Breath Sounds: bilateral Clear Respiratory Effort: Symmetrical Anesthesia Assess/Plan ASA Score: 2 Level of consciousness: Cooperative, Oriented Anesthetic Plan: General Autologous Blood: No Monitoring Plan: Standard Monitors Recovery Plan: PACU (Discussed GA, agrees to proceed)
--- NOTE | 2018-11-02 20:48 | AcuteCare Surgery Consult Note ---
Date of Encounter: 11/02/18 Time of Encounter: 20:43 Assessment and Plan (1) Perineal abscess Current Visit: Yes Status: Acute 48F with perineal abscess; HDS; NPO IVF IV abx OR for incision and drainage of perineal abscess History of Present Illness Consult date: 11/02/18 Reason for consult: other (perineal abscess) History of present illness: 48F who presents with 4 days of worsening constipation, difficulty urinating,and perianal/suprapubic pain. She states that all symptoms are unusual as she does not normally have any issues having bowel movements, urinating, nor does she have pain. No reports of fevers, chills, nor other systemic symptoms, nor any reports of drainage; Due to the persistency of her pain she presents to the ER for further evaluation; A CT scan was obtained which was reviewed and evaluated by me which demonstrated a perineal abscess. Past Med Surg Social Fam HX - Past Medical History Medical history: non-contributory, hyperlipidemia, hypertension, other Additional medical history: achilles tendinitis of left lower extremity. noncompliance with CPAP treatment. CP. DLD. Mateo at home. anxiety Psychiatric history: anxiety, depression - Past Surgical History Surgical History: other Additional surgical history: EGD. cardiac cath- no stents placed. dilation and curettage. tubal ligation. left foot resection of haglunds deformity. L achilles tendon repair - Social History Smoking Status: Never smoker Smokeless Tobacco Status: No Alcohol use: none Drug use: none - Family History Mother Living Status: Hx Family Cardiac Disorders: Yes (DE, CAD) Father Living Status: Still Living Hx Family Cardiac Disorders: Yes (hypertension) Medications and Allergies Simvastatin [Zocor] 40 mg PO QAM 05/03/16 [History] raNITIdine HCl [Ranitidine HCl] 300 mg PO DAILY 11/28/16 [History] FLUoxetine HCl [Fluoxetine HCl] 10 mg PO QAM 07/18/18 [History] FLUoxetine HCl [Fluoxetine HCl] 40 mg PO QAM 07/18/18 [History] Tizanidine HCl 4 mg PO DAILY PRN 07/18/18 [History] Aspirin [Lo-Dose Aspirin EC] 81 mg PO DAILY 11/02/18 [History] Allergy/AdvReac Type Severity Reaction Status Date / Time codeine AdvReac Drowsy Verified 11/02/18 20:26 sucralfate [From Carafate] AdvReac Vomiting Verified 11/02/18 20:26 Review of Systems All systems PM: 12 point ROS negative besides HPI findings General Surgery Exam Initial Vital Signs Temp Pulse Resp BP Pulse Ox 98.1 F 100 21 123/82 99 11/02/18 15:30 11/02/18 15:30 11/02/18 15:30 11/02/18 15:30 11/02/18 15:30 - General physical appearance no distress - Eyes PERRL, normal ocular movement - ENT normocephalic - Neck trachea midline, no lymphadectomy - Respiratory normal expansion, normal respiratory effort - Cardiovascular Cardiovascular exam: Present: RRR - Abdomen Abdomen general surgery: Present: soft, tender (mildly tender along suprapubic region) - Rectum Rectum: Present: normal sphincter tone, no hemorrhoids, other (TTP along perineum; edema; no drainage) - Neurologic Present: CN 2-12 grossly intact - Musculoskeletal Present: normal posture - Psychiatric Psychiatric general surgery: Present: A&Ox3 Exam Initial Vital Signs Temp Pulse Resp BP Pulse Ox 98.1 F 100 21 123/82 99 11/02/18 15:30 11/02/18 15:30 11/02/18 15:30 11/02/18 15:30 11/02/18 15:30 Results - Labs 11/02/18 17:30 11/02/18 17:30 Abnormal lab results WBC 18.6 K/mcL (4.3-11.1) H 11/02/18 17:30 MPV 8.9 fL (9.4-12.4) L 11/02/18 17:30 Neutrophils # 15.9 K/mcL (1.6-8.9) H 11/02/18 17:30 Potassium 3.3 mEq/L (3.5-5.1) L 11/02/18 17:30 Glucose 115 mg/dL (70-105) H 11/02/18 17:30 Ur Specific [place] > 1.030 (1.010-1.025) H 11/02/18 18:47 Urine Protein 30 mg/dL (Neg-Trace) H 11/02/18 18:47 Urine Ketones 15 mg/dL (Negative) H 11/02/18 18:47 Ur Leukocyte Esterase Small (Negative) H 11/02/18 18:47 Urine Microscopic WBC 50-100 per hpf (0-3) H 11/02/18 18:47 Ur Squamous Epith Cells Many per lpf (None-Few) H 11/02/18 18:47 Urine Bacteria Many per hpf (None-Few) H 11/02/18 18:47 Ur Culture Indicated? YES (NO) A 11/02/18 18:47 Diabetes panel 11/02/18 Range/Units 17:30 Sodium 136 (136-145) mEq/L Potassium 3.3 L (3.5-5.1) mEq/L Chloride 101 (98-107) mEq/L Carbon Dioxide 25 (23-29) mEq/L BUN 12 (6-20) mg/dL Creatinine 0.78 (0.60-1.20) mg/dL Glucose 115 H (70-105) mg/dL Calcium 9.1 (8.6-10.3) mg/dL Calcium panel 11/02/18 Range/Units 17:30 Calcium 9.1 (8.6-10.3) mg/dL Pituitary panel 11/02/18 Range/Units 17:30 Sodium 136 (136-145) mEq/L Potassium 3.3 L (3.5-5.1) mEq/L Chloride 101 (98-107) mEq/L Carbon Dioxide 25 (23-29) mEq/L BUN 12 (6-20) mg/dL Creatinine 0.78 (0.60-1.20) mg/dL Glucose 115 H (70-105) mg/dL Calcium 9.1 (8.6-10.3) mg/dL Adrenal panel 11/02/18 Range/Units 17:30 Sodium 136 (136-145) mEq/L Potassium 3.3 L (3.5-5.1) mEq/L Chloride 101 (98-107) mEq/L Carbon Dioxide 25 (23-29) mEq/L BUN 12 (6-20) mg/dL Creatinine 0.78 (0.60-1.20) mg/dL Glucose 115 H (70-105) mg/dL Calcium 9.1 (8.6-10.3) mg/dL All other labs normal. - Imaging CT scan - abdomen: report reviewed, image reviewed CT scan - pelvis: report reviewed, image reviewed Consult Discharge Plan - Plan Referrals: Marline Holly [Primary Care Provider] -
[2018-11-02] MEDS ORDERED: *HR* HYDROmorphone (PF) 1 MG/ML SYRINGE IVP PRN (20:52)
[2018-11-02] MEDS ORDERED: Ondansetron 4 MG/2 ML VIAL IVP ONE (20:52)
[2018-11-02] MEDS ORDERED: *HR* OxyCODONE Immed Rel 5 MG TABLET PO PRN (20:52)
[2018-11-02] MEDS ORDERED: Dexamethasone 4 MG/ML VIAL ONE (20:55)
[2018-11-02] MEDS ORDERED: *HR* Propofol 200 MG/20 ML VIAL IVP ONE (20:55)
[2018-11-02] MEDS ORDERED: Lidocaine -MPF 2% 2 ML VIAL ONE ×2 (20:55→20:57)
[2018-11-02] MEDS ORDERED: Ondansetron 4 MG/2 ML VIAL ONE (20:55)
[2018-11-02] MEDS ORDERED: *HR* FentaNYL (PF) 100 MCG/2 ML VIAL ONE (20:55)
[2018-11-02] MEDS ORDERED: Famotidine 20 MG/2 ML VIAL ONE (20:58)
[2018-11-02] MEDS ORDERED: Acetaminophen IV 1,000 MG/100 ML INFUS..BTL ONE (20:58)
[2018-11-02] MEDS ORDERED: Lidocaine -MPF 4% 5 ML AMPUL ONE (21:09)
[2018-11-02] MEDS ORDERED: *HR* Succinylcholine 200 MG/10 ML VIAL IVP ONE (21:09)
[2018-11-02] MEDS ORDERED: CefOXitin 1,000 MG VIAL ONE (21:32)
--- NOTE | 2018-11-02 22:01 | Operative Note ---
Date of procedure: 11/02/18 (') Pre-op diagnosis: perineal abscess Post-op diagnosis: same Procedure: incision and drainage of perineal abscess Implants: none Complications: none Anesthesia: GETA Local Anesthetics: 0.5% Sensorcaine HCL SubQ (cc) Surgeon: Juan Whittington Was there an carpenter's assistant present: No Estimated blood loss (cc): 5 Specimen: aerobic and anaerobic cultures Condition: stable Disposition: PACU Procedure in Detail: The patient was brought into the operating room suite. placed in the supine position. Mechanical dvt prophylaxis was placed. She underwent smooth MAC anesthesia. Prepped and draped in the usual fashion. Preoperative antibiotics were given. A timeout was held identifying correct patient, pathology, procedure, and physician. I palpated the area of greatest tension. it was along the perineal with associated edema of the posterior aspect of the vagina. I made the decision to create an incision more along the left gluteal tissue and on the perineum to avoid injury to the anus and vagina. There was immediate evacuation of purulent and malodorous fluid. Aerobic and anaerobic cultures were obtained. I then used the mosquito clamps to break any loculations and allow for complete evacuation of the purulent material. The cavity measured 4cm x 6cm in size (24sqcm). Of note, there was no evidence of a fistula. The wound was packed with iodoform. I then concluded the procedure and the patient was escorted out of the operating room suite in stable condition.
[2018-11-02] MEDS ORDERED: *HR* HYDROcodone/Acet 5/325 mg TABLET PO PRN (22:02)
[2018-11-02] MEDS ORDERED: Ibuprofen 600 MG TABLET PO PRN (22:02)
[2018-11-02] MEDS ORDERED: Ondansetron 4 MG/2 ML VIAL IVP PRN (22:02)
[2018-11-02] MEDS ORDERED: tiZANidine 4 MG TABLET PO PRN (22:05)
--- NOTE | 2018-11-02 22:42 | Anesthesia Evaluation Post Op ---
Date of Encounter: 11/02/18 Time of Encounter: 22:30 - Vital Signs Vital Signs: Vital Signs/O2 Sat/Glucose, Most Current Temp Pulse Resp BP Pulse Ox 11/02/18 22:22 99.1 F 91 20 110/74 100 11/02/18 22:12 94 20 115/71 99 11/02/18 22:02 96 20 117/74 94 11/02/18 21:52 98.7 F 105 24 114/78 98 11/02/18 20:47 98.4 F 83 16 141/79 99 11/02/18 19:17 86 16 146/80 98 - Lungs Lungs: Clear Ascult./Percussion - Airway Airway: Non-obstructed - Cardiovascular Regular Rate - Mental Status Mental Status: Alert & Oriented, Answers Appropriately - Pain Pain Scale: 1 - Nausea Vomiting Nausea Vomiting: Not Present - Hydration Hydration: Ice chips - Discharge PostOp Status: Transfer Patient to floor
[2018-11-02] MEDS: 0.9 % Sodium Chloride 1,000 ML IVC SCH (23:09)
[2018-11-03] MEDS ORDERED: Famotidine 20 MG TABLET PO SCH (09:00)
[2018-11-03] MEDS ORDERED: FLUoxetine HCl 10 MG CAPSULE PO SCH (09:00)
[2018-11-03] MEDS ORDERED: FLUoxetine 20 MG CAPSULE PO SCH (09:00)
[2018-11-03] MEDS: 0.9 % Sodium Chloride 1,000 ML IVC SCH (15:45)
--- NOTE | 2018-11-03 15:51 | Discharge Summary ---
Orders not resulted at time of discharge: Pending orders 11/02/18 18:47 Culture,Urine [] Stat 11/02/18 21:35 Culture,Anaerobic [] Routine Culture,Wound,with Gram Stain [] Routine Date of Encounter: 11/03/18 Time of Encounter: 15:44 - Discharge Diagnosis (1) Perineal abscess Priority: Primary Status: Acute Comments: 48F POD #1 s/p incision and drainage of perineal abscess; afebrile; feeling better; teaching concerning packing the wound sitz bath x 7 days abx not needed as the abscess was drained follow up in my wound clinic in 2 weeks General Surgery Exam Initial Vital Signs Temp Pulse Resp BP Pulse Ox 98.1 F 100 21 123/82 99 11/02/18 15:30 11/02/18 15:30 11/02/18 15:30 11/02/18 15:30 11/02/18 15:30 - General physical appearance no distress - Respiratory normal expansion, normal respiratory effort - Cardiovascular Cardiovascular exam: Present: RRR - Integumentary Integumentary general surgery: Present: warm and dry - Neurologic Present: CN 2-12 grossly intact - Musculoskeletal Present: normal posture - Psychiatric Psychiatric general surgery: Present: A&Ox3 - Hospital Course Hospital course: Ms. Freedman is a 48 year old female Time spent discussing smoking cessation with patient: 3 to 10 minutes - Time Spent with Patient Total time spent providing and/or coordinating discharge services: Greater than 30 minutes - Discharge Medications Prescriptions: No Action Simvastatin [Zocor] 40 mg PO QAM raNITIdine HCl [Ranitidine HCl] 300 mg PO DAILY FLUoxetine HCl [Fluoxetine HCl] 10 mg PO QAM FLUoxetine HCl [Fluoxetine HCl] 40 mg PO QAM Tizanidine HCl 4 mg PO DAILY PRN PRN Reason: Muscle Spasm Aspirin [Lo-Dose Aspirin EC] 81 mg PO DAILY Home Medications: Simvastatin [Zocor] 40 mg PO QAM 05/03/16 [History] raNITIdine HCl [Ranitidine HCl] 300 mg PO DAILY 11/28/16 [History] FLUoxetine HCl [Fluoxetine HCl] 10 mg PO QAM 07/18/18 [History] FLUoxetine HCl [Fluoxetine HCl] 40 mg PO QAM 07/18/18 [History] Tizanidine HCl 4 mg PO DAILY PRN 07/18/18 [History] Aspirin [Lo-Dose Aspirin EC] 81 mg PO DAILY 11/02/18 [History] Allergies/Adverse Reactions: Allergy/AdvReac Type Severity Reaction Status Date / Time codeine AdvReac Drowsy Verified 11/02/18 20:26 sucralfate [From Carafate] AdvReac Vomiting Verified 11/02/18 20:26 Date of admission: 11/02/18 19:41 Primary care physician: Marline Holly Consults: 11/02/18 22:02 Consult to Parks And Recreation Worker [CONS] Routine Reason for SW Consult: home nursing for dressing changes 11/02/18 22:55 Consult to Pastoral Services [CONS] Routine Comment: Discharging clinician: Juan Whittington Anticipated date of discharge: 11/03/18 Labs on day of discharge: Labs from last 24 hours 11/02/18 11/02/18 11/02/18 18:47 18:47 17:30 WBC RBC Hgb Hct MCV MCH MCHC RDW Plt Count MPV Immature Gran % Seg Neutrophils % Lymphocytes % Monocytes % Eosinophils % Basophils % Neutrophils # Lymphocytes # Monocytes # Eosinophils # Basophils # Sodium 136 Potassium 3.3 L Chloride 101 Carbon Dioxide 25 BUN 12 Creatinine 0.78 Est GFR ( Amer) > 60 Est GFR (Non-Af Amer) > 60 BUN/Creatinine Ratio 15 Glucose 115 H Calculated Osmolality 283 Calcium 9.1 Urine Color Yellow Urine Clarity Clear Urine pH 5.5 Ur Specific Boomer > 1.030 H Urine Protein 30 H Urine Glucose (UA) Normal Urine Ketones 15 H Urine Blood Negative Urine Nitrite Negative Urine Bilirubin Negative Urine Urobilinogen Normal Ur Leukocyte Esterase Small H Urine Microscopic RBC 0-3 Urine Microscopic WBC 50-100 H Ur Squamous Epith Cells Many H Urine Bacteria Many H Ur Culture Indicated? YES A Urine Test Negative 11/02/18 17:30 WBC 18.6 H RBC 4.83 Hgb 14.2 Hct 43.2 MCV 89.4 MCH 29.4 MCHC 32.9 RDW 12.7 Plt Count 265 MPV 8.9 L Immature Gran % 0.6 Seg Neutrophils % 85.7 Lymphocytes % 7.2 Monocytes % 6.2 Eosinophils % 0.1 Basophils % 0.2 Neutrophils # 15.9 H Lymphocytes # 1.3 Monocytes # 1.2 Eosinophils # 0.0 Basophils # 0.0 Sodium Potassium Chloride Carbon Dioxide BUN Creatinine Est GFR ( Amer) Est GFR (Non-Af Amer) BUN/Creatinine Ratio Glucose Calculated Osmolality Calcium Urine Color Urine Clarity Urine pH Ur Specific Boomer Urine Protein Urine Glucose (UA) Urine Ketones Urine Blood Urine Nitrite Urine Bilirubin Urine Urobilinogen Ur Leukocyte Esterase Urine Microscopic RBC Urine Microscopic WBC Ur Squamous Epith Cells Urine Bacteria Ur Culture Indicated? Urine Test Preliminary micro results at discharge 11/02/18 21:35 Wound Culture - Preliminary Other-Specify in Comments 11/02/18 18:47 Urine Culture - Preliminary Urine,Clean Catch Culture is incubating. - Impressions ITS Impressions Chest/Abdomen X-ray 11/02/18 16:33 IMPRESSION: 1. No acute abnormalities seen in the chest abdomen and pelvis 2. No significant stool burden identified D/ / Florentino Samson MD / Florentino Samson MD Interpreting Provider: Florentino Samson MD Abdomen/Pelvis CT 11/02/18 18:26 IMPRESSION: Rim enhancing complex fluid collection seen within the perineum, just anterior to the anus and posterior to the vagina, presumably representing a perirectal abscess, but correlation with physical examination is necessary as a gynecologic etiology would still remain in the differential. D/ / Michael Guadarrama MD / Michael Guadarrama MD Interpreting Provider: Michael Guadarrama MD - Patient Status Disposition: Home, Self-Care Condition: Fair Overall status at discharge: patient is progressing back to baseline - Discharge Instructions Follow Up With: Marline Holly [Primary Care Provider] - Juan Whittington MD [Non-Partnered Physician] - (wound clinic in 2 weeks) - Diet and Activity Activity: increase activity as tolerated Diet: advance to your usual diet
[2018-11-03 17:03] VITALS: BP 104/65
[2018-11-03] MEDS ORDERED: FLU Vac QV 19-20 (6Month+)/PF 0.5 ML SYRINGE IM ONE (17:35)
== END 2018-11-03 17:45 | disposition home or self-care (01) ==
LOC: 3ANU 15:29 → EMEROOARM 15:29 → 3ANU 20:53
PROVIDERS: ADMIT Surgery; ATTEND Surgery